=== PATIENT | female | born 1965 | race Caucasian/White ===

== ENCOUNTER → 2019-12-08 | Outpatient (CLI) | payer BC ==
[~2019-12-08] MED LIST: CALC500T54 PO; MELA5CAP PO
== END | disposition home or self-care (01) ==
LOC: LAB 16:00
PROVIDERS: ATTEND Registered Nurse
DX: Z11.59 Encounter for screening for other viral diseases (principal)
CPT/HCPCS: U0003-CS

== ENCOUNTER → 2019-12-11 | Day surgery (SDC) | payer BC ==
[~2019-12-11] MED LIST changes: +ACETAMINOPHEN 325 MG TABLET PO PRN; +ALBUTEROL SULFATE 2.5 MG/3 ML NEBU. NEB PRN; +ATROPINE 0.5 MG/5 ML DISP.SYRIN. IV PRN; +IV RINGERS SOLUTION,LACTATED 1,000 ML IV SCH; +MIDAZOLAM HCL PF 2 MG/2 ML VIAL. IV PRN; +ONDANSETRON PF 4 MG/2 ML VIAL. IV PRN; +PROPOFOL 10,000 MCG/ML (20ML) VIAL IV ONE; +diphenhydrAMINE 50 MG/ML VIAL IV PRN
[2019-12-11 12:40] VITALS: BP 145/69
--- NOTE | 2019-12-15 17:07 | PATHOLOGY ---
[facility] Accession Number: [id number] . 01 Material submitted: . colon - DESCENDING COLON POLYP. Modifiers: descending . 02 Diagnosis: Colon biopsy, descending colon polyp: - Hyperplastic polyp with mucosal-associated lymphoid aggregate. . ([facility]:mm; 12/15/2019) [facility] 12/15/2019 0959 Local . 02 Comment: There are no adenomatous changes or evidence of malignancy. . ([facility]:mml; 12/15/2019) . 02 Electronically signed: . Nirmal Gomez MD, Pathologist NPI- [id number] . 01 Gross description: . The specimen is received in formalin, labeled "Ananth, Janell, descending colon polyp" and consists of a fragment of harvye tissue measuring 0.3 x 0.2 x 0.2 cm which is entirely submitted in A1. ([facility]; 12/14/2019) JFQ/JFQ 12/14/2019 1629 Local . 02 Pathologist provided ICD-10: K63.5 . 02 CPT . 206937 Specimen Comment: A courtesy copy of this report has been sent to [phone] Specimen Comment: Report sent to Performed at: 01 [facility] [address] [facility] [address], [place] [id number] MD Aydin Nathan MD Phone: [phone] Performed at: 02 [facility] [address] [place], [place] [id number] MD Nirmal Gomez MD Phone: [phone]
== END | disposition home or self-care (01) ==
LOC: SURG 10:01
PROVIDERS: ATTEND Internal Medicine Gastroenterology
DX: Z12.11 Encounter for screening for malignant neoplasm of colon (principal); K57.30 Diverticulosis of large intestine without perforation or abscess without bleeding; K63.5 Polyp of colon; K64.0 First degree hemorrhoids; E66.01 Morbid (severe) obesity due to excess calories; K63.89 Other specified diseases of intestine; E11.9 Type 2 diabetes mellitus without complications; Z88.8 Allergy status to other drugs, medicaments and biological substances; Z79.899 Other long term (current) drug therapy; Z90.49 Acquired absence of other specified parts of digestive tract; Z79.84 Long term (current) use of oral hypoglycemic drugs
CPT/HCPCS: 45380; 88305; J2704; J7120

== ENCOUNTER → 2020-04-06 | Outpatient (CLI) | payer BC ==
[2019-12-11 12:40] VITALS: BP 145/69
[~2020-04-06] MED LIST changes: -ACETAMINOPHEN 325 MG TABLET PO PRN; -ALBUTEROL SULFATE 2.5 MG/3 ML NEBU. NEB PRN; -ATROPINE 0.5 MG/5 ML DISP.SYRIN. IV PRN; -IV RINGERS SOLUTION,LACTATED 1,000 ML IV SCH; -MIDAZOLAM HCL PF 2 MG/2 ML VIAL. IV PRN; -ONDANSETRON PF 4 MG/2 ML VIAL. IV PRN; -PROPOFOL 10,000 MCG/ML (20ML) VIAL IV ONE; -diphenhydrAMINE 50 MG/ML VIAL IV PRN
--- NOTE | 2020-04-06 15:17 | RAD ---
CHEST PA LATERAL History: Cough Comparison: May 26, 2011. Findings: 2 views of the chest are submitted. Small round radiopacity of the left perihilar region is believed to be due to vessel, fairly similar in appearance. There is no new lobar infiltrate, pleural fluid, or pneumothorax. Heart size is within normal limits. Impression: 1. No convincing acute radiographic abnormality is identified. Electronically signed by: Paresh Bunn MD (04/06/2020 3:14 PM) [facility]
--- NOTE | 2020-04-06 15:57 | RAD ---
EXAM: 3 Views Left Shoulder DATE: 04/06/2020 12:00 AM INDICATION: Reason: LEFT SHOULDER PAIN / Spl. Instructions: / History: COMPARISON: No Prior FINDINGS: There is no evidence for acute fracture or dislocation. AC joint is congruent. Mild AC joint degenerative changes are seen. Small glenohumeral joint osteophytes. Humeral head is not high riding. IMPRESSION: 1. No acute fracture or dislocation. 2. 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 Electronically signed by: Trevor Dorantes MD (04/06/2020 3:54 PM) [id number]
== END ==
LOC: DXRAD 14:24
PROVIDERS: ATTEND Family Medicine
DX: M19.012 Primary osteoarthritis, left shoulder (principal); R03.0 Elevated blood-pressure reading, without diagnosis of hypertension; M25.712 Osteophyte, left shoulder
CPT/HCPCS: 71046; 73030